=== PATIENT | male | born 1970 | race Caucasian/White ===

== ENCOUNTER 2023-03-27 05:27 | Outpatient (CLI) | payer MEDICARE ==
[~2023-03-27] VITALS: Ht 175.3 cm; Wt 90.9 kg
[2023-03-27] MEDS ORDERED: TICA90TA PO (10:02)
[2023-03-27] MEDS ORDERED: OXYC10TA7 PO (10:02)
[2023-03-27] MEDS ORDERED: GABA800T10 PO (10:02)
[2023-03-27] MEDS ORDERED: NITR0.4T42 SL (10:02)
[2023-03-27] MEDS ORDERED: CRV25T PO (10:02)
[2023-03-27] MEDS ORDERED: METO-310 PO (10:02)
[2023-03-27] MEDS ORDERED: ISOS30TA82 PO (10:02)
[2023-03-27] MEDS ORDERED: PANT40TA52 PO (10:02)
[2023-03-27] MEDS ORDERED: ORPH100T3 PO (10:02)
[2023-03-27] MEDS ORDERED: ACET325T38 PO (10:02)
[2023-03-27] MEDS ORDERED: FURO40TA4 PO (10:02)
[2023-03-27] MEDS ORDERED: MODA200T39 PO (10:02)
== END 2023-03-27 10:09 | disposition home or self-care (01) ==
LOC: PREOP 05:27
PROVIDERS: ATTEND Otolaryngology Otolaryngology/Facial Plastic Surgery
DX: Z01.818 Encounter for other preprocedural examination (principal)

== ENCOUNTER 2023-04-03 05:50 | Day surgery (SDC) | payer MEDICARE ==
[2023-04-03] VITALS (11 sets, daily range): BP systolic 108–159; BP diastolic 73–94
[~2023-04-03 05:50] MED LIST: ACET325T38 PO; CRV25T PO; FURO40TA4 PO; GABA800T10 PO; ISOS30TA82 PO; METO-310 PO; MODA200T39 PO; NITR0.4T42 SL; ORPH100T3 PO; OXYC10TA7 PO; PANT40TA52 PO; TICA90TA PO
[2023-04-03] MEDS ORDERED: LACTATED RINGERS 1,000 ML IV PRN (06:00)
--- NOTE | 2023-04-03 06:56 | Progress Note-Post Operative ---
Post-Operative Progess Note Surgeon (s)/Dividing Machine Operator (s) Surgeon MACIEJ MORALES MD Dividing Machine Operator n/a Pre-Operative Diagnosis Right Laryngeal Lesion Post-Operative Diagnosis same Post-Op Procedure Note Date of Procedure: Apr 03, 2023 Name of Procedure Performed: Direct Laryngoscopy with Biopsy Description & Findings Description and Findings: n/a Anesthesia Type get Estimated Blood Loss minimal Packing none. Specimen(s) collected/removed right laryngeal biopsies MACIEJ MORALES MD Apr 03, 2023 06:56
--- NOTE | 2023-04-03 06:56 | Progress Note-Pre Operative ---
Pre-Operative Progress Note Date of Available H&P: Apr 03, 2023 Date H&P Reviewed: Apr 03, 2023 Time H&P Reviewed: 06:30 History & Physical: H&P Reviewed, Patient Examed, No changes noted Changes from last HP none Pre-Operative Diagnosis: Right Laryngeal Lesion MACIEJ MORALES MD Apr 03, 2023 06:56
[2023-04-03] MEDS ORDERED: LIDOCAINE/EPI 1%-1:100,000 (XYLOCAINE) 20ML ONE ×2 (07:07→08:14)
[2023-04-03] MEDS ORDERED: HYDR-3781 PO (07:10)
[2023-04-03] MEDS ORDERED: ASPI-999 PO (07:10)
[2023-04-03] MEDS ORDERED: ROSU10TA28 PO (07:10)
[2023-04-03] MEDS ORDERED: CARI3CAP PO (07:10)
[2023-04-03] MEDS ORDERED: FAMO20TA5 PO (07:10)
[2023-04-03] MEDS ORDERED: CYCL10TA25 PO (07:10)
[2023-04-03] MEDS ORDERED: OLAN20TA34 PO (07:10)
[2023-04-03] MEDS ORDERED: DULO30CA49 PO (07:10)
[2023-04-03] MEDS ORDERED: FLUO10CA33 PO (07:10)
[2023-04-03] MEDS ORDERED: DICL100G13 TP (07:10)
[2023-04-03] MEDS ORDERED: DIVA-76 PO (07:10)
[2023-04-03] MEDS ORDERED: RT-ALBUINH INH (07:10)
[2023-04-03 07:21] LABS: BASOPHILS % (AUTO) 0 % (0-10); EOSINOPHILS # (AUTO) 0.1 10^3/uL (0.0-0.3); EOSINOPHILS % (AUTO) 1 % (0-10); HEMATOCRIT 49 % (40-54); HEMOGLOBIN 16.8 g/dL (13.3-17.7); LYMPHOCYTES # (AUTO) 2.2 10^3/uL (1.0-4.0); LYMPHOCYTES % (AUTO) 21 % (12-44); MEAN CORPUSCULAR HEMOGLOBIN 32 pg (25-34); MEAN CORPUSCULAR HGB CONC 34 g/dL (32-36); MEAN CORPUSCULAR VOLUME 94 fL (80-99); MEAN PLATELET VOLUME 10.3 fL (9.0-12.2); MONOCYTES # (AUTO) 0.8 10^3/uL (0.0-1.0); MONOCYTES % (AUTO) 7 % (0-12); NEUTROPHILS % (AUTO) 69 % (42-75); PLATELET COUNT 246 10^3/uL (130-400); WHITE BLOOD COUNT 10.1 10^3/uL (4.3-11.0)
[2023-04-03 07:32] LABS: POTASSIUM 3.7 MMOL/L (3.6-5.0)
[2023-04-03 07:34] LABS: CALCIUM 9.1 MG/DL (8.5-10.1)
[2023-04-03 07:38] LABS: CREATININE SERUM 1.12 MG/DL (0.60-1.30)
[2023-04-03] MEDS ORDERED: morphine INJ 10 MG/ML 1ML (SYR OR VIAL) ONE (07:41)
[2023-04-03] MEDS ORDERED: MIDAZOLAM 2 MG/2 ML (VERSED) VIAL ONE (07:41)
[2023-04-03] MEDS ORDERED: proPOfol 200 MG/20 ML (DIPRIVAN) VIAL IV ONE (07:41)
[2023-04-03] MEDS ORDERED: LIDOCAINE PF 2% 5 ML (XYLOCAINE) VIAL ONE (07:41)
[2023-04-03] MEDS ORDERED: LIDOCAINE/EPI 1%-1:100,000 (XYLOCAINE) 20ML TOP ONE (09:20)
[2023-04-03] MEDS ORDERED: ROCURONIUM 50 MG/5 ML (ZEMURON) VIAL IV ONE (09:21)
[2023-04-03] MEDS ORDERED: ONDANSETRON 4 MG/2 ML (SDV) Z0FRAN ONE ×2 (09:22→09:34)
[2023-04-03] MEDS ORDERED: SUCCINYLCHOLINE INJ 20 MG/1 ML 10 ML VIAL ONE (09:22)
--- NOTE | 2023-04-03 09:32 | Anesthesia-General Post-Op ---
General Patient Condition Mental Status/LOC: Same as Preop Cardiovascular: Satisfactory Nausea/Vomiting: Absent Respiratory: Satisfactory Pain: Controlled Complications: Absent Post Op Complications Complications None Follow Up Care/Instructions Patient Instructions None needed. Anesthesia/Patient Condition Patient Condition Patient is doing well, no complaints, stable vital signs, no apparent adverse anesthesia problems. No complications reported per nursing. MIAN OJEDA CRNA Apr 03, 2023 09:32
[2023-04-03] MEDS ORDERED: HYDROmorphone 2 MG/ML VIAL (DILAUDID) ONE (09:34)
[2023-04-03] MEDS ORDERED: morphine INJ 10 MG/ML 1ML (SYR OR VIAL) IVP ONE (09:45)
[2023-04-03] MEDS ORDERED: ONDANSETRON 4 MG/2 ML (SDV) Z0FRAN IVP PRN (09:45)
[2023-04-03] MEDS ORDERED: HYDROmorphone 2 MG/ML VIAL (DILAUDID) IV ONE (09:45)
== END 2023-04-03 11:05 | disposition home or self-care (01) ==
LOC: SDC 05:50
PROVIDERS: ATTEND Otolaryngology Otolaryngology/Facial Plastic Surgery
DX: J37.0 Chronic laryngitis (principal); H92.01 Otalgia, right ear; F17.200 Nicotine dependence, unspecified, uncomplicated; J38.7 Other diseases of larynx
CPT/HCPCS: 36415; 80048; 85025; 87081; 93005